=== PATIENT | male | born 1960 | race Caucasian/White ===

== ENCOUNTER 2017-04-11 22:11 | Inpatient (IN) | payer OTHER ==
[2017-04-11] MEDS ORDERED: HYDROmorphone 1 MG/ML 1 ML SYRINGE IVP STA (22:26)
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
--- NOTE | 2017-04-11 22:38 | XR ---
EXAMINATION TYPE: XR chest 1V DATE OF EXAM: 04/11/2017 COMPARISON: Today HISTORY: Pain TECHNIQUE: Single frontal view of the chest is obtained. FINDINGS: Right chest tube appears in good position. I see no pneumothorax. There is mild subcutaneo us air around the chest tube. There is some mild infiltrate and atelectasis at the lung bases bilater ally. There is no heart failure. Mediastinum appears normal. There is at least one lateral right rib fracture. IMPRESSION: Right chest tube is in good position. No pneumothorax. There is some mild increasing inf iltrate and atelectasis at the lung bases compared to the [facility] exam at 4:00 PM today.
[2017-04-11 22:39] LABS: Glucose,Whole Blood 111 mg/dL (75-99)
--- NOTE | 2017-04-11 22:40 | XR ---
EXAMINATION TYPE: XR pelvis AP view DATE OF EXAM: 04/11/2017 COMPARISON: NONE HISTORY: Pain TECHNIQUE: Single view FINDINGS: The pelvic ring appears intact. Proximal femurs are intact. Sacroiliac joints appear normal . IMPRESSION: Negative pelvis x-ray exam. No fracture seen.
[2017-04-11 22:41] LABS: Basophils % (A) 0 %; CH 31.7; CHCM 32.8; Eosinophils # (A) 0.1 k/uL (0-0.7); Eosinophils % (A) 1 %; HCT 48.3 % (39.0-53.0); HDW 2.22; HGB 16.1 gm/dL (13.0-17.5); Luc # (Auto) 0.15; Luc % (Auto) 1; Lymphocytes # (A) 1.3 k/uL (1.0-4.8); Lymphocytes % (A) 9 %; MCH 32.3 pg (25.0-35.0); MCHC 33.3 g/dL (31.0-37.0); MCV 97.1 fL (80.0-100.0); Mean Platelet Volume 8.1; Monocytes # (A) 0.8 k/uL (0-1.0); Monocytes % (A) 6 %; Neutrophils # (A) 12.4 k/uL (1.3-7.7); Neutrophils % (A) 84 %; RBC 4.97 m/uL (4.30-5.90); RDW 14.1 % (11.5-15.5); WBC 14.8 k/uL (3.8-10.6); WBC (Perox) 14.45
[2017-04-11 22:48] LABS: Partial Thromboplastin Time 24.7 sec (22.0-30.0); Prothrombin Time 10.5 sec (9.0-12.0)
[2017-04-11 22:52] LABS: ALT 40 U/L (21-72); AST 45 U/L (17-59); Alcohol <10 mg/dL; Alkaline Phosphatase 52 U/L (38-126); Amylase 54 U/L (30-110); Anion Gap 6 mmol/L; Blood Urea Nitrogen 17 mg/dL (9-20); Calcium 8.6 mg/dL (8.4-10.2); Carbon Dioxide 25 mmol/L (22-30); Chloride 106 mmol/L (98-107); Glucose 107 mg/dL (74-99); Non-African American GFR(MDRD) >60 (>60 ml/min/1.73 sqM); Sodium 137 mmol/L (137-145); Total Bilirubin 0.7 mg/dL (0.2-1.3); Total Protein 6.8 g/dL (6.3-8.2)
[2017-04-11 23:01] LABS: Creatine Kinase 646 U/L (55-170)
[2017-04-11] MEDS ORDERED: NALOXONE 0.4 MG/ML 1 ML VIAL IV PRN (23:08)
[2017-04-11 23:14] LABS: Troponin I <0.012 ng/mL (0.000-0.034)
[2017-04-11 23:17] LABS: Creatine Kinase MB 10.4 ng/mL (0.0-2.4)
[2017-04-12] MEDS ORDERED: HYDROmorphone 1 MG/ML 1 ML SYRINGE IVP STA
[2017-04-12] MEDS: SODIUM CHLORIDE 0.9% 1,000 ML IV SCH ×2 (01:09→19:57)
[2017-04-12] MEDS: HYDROcodone/APAP 5-325MG 1 EACH TAB PO PRN ×5 (01:11→19:03)
[2017-04-12] MEDS: HYDROmorphone 1 MG/ML 1 ML SYRINGE IVP PRN ×6 (02:29→16:58)
[2017-04-12 06:40] LABS: Basophils % (A) 0 %; CH 32.6; CHCM 32.8; Eosinophils # (A) 0.1 k/uL (0-0.7); Eosinophils % (A) 1 %; HCT 47.2 % (39.0-53.0); HDW 2.32; HGB 15.4 gm/dL (13.0-17.5); Luc # (Auto) 0.14; Luc % (Auto) 1; Lymphocytes # (A) 1.2 k/uL (1.0-4.8); Lymphocytes % (A) 10 %; MCH 32.6 pg (25.0-35.0); MCHC 32.7 g/dL (31.0-37.0); Mean Platelet Volume 7.3; Monocytes # (A) 0.8 k/uL (0-1.0); Monocytes % (A) 6 %; Neutrophils % (A) 82 %; RBC 4.72 m/uL (4.30-5.90); RDW 12.7 % (11.5-15.5); WBC 12.1 k/uL (3.8-10.6); WBC (Perox) 11.59
[2017-04-12 06:58] LABS: ALT 40 U/L (21-72); AST 49 U/L (17-59); Alkaline Phosphatase 54 U/L (38-126); Anion Gap 7 mmol/L; Blood Urea Nitrogen 15 mg/dL (9-20); Calcium 8.5 mg/dL (8.4-10.2); Carbon Dioxide 23 mmol/L (22-30); Chloride 105 mmol/L (98-107); Glucose 117 mg/dL (74-99); Non-African American GFR(MDRD) >60 (>60 ml/min/1.73 sqM); Potassium 4.6 mmol/L (3.5-5.1); Sodium 135 mmol/L (137-145); Total Bilirubin 1.1 mg/dL (0.2-1.3); Total Protein 6.8 g/dL (6.3-8.2)
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
[2017-04-12] MEDS: ACETAMINOPHEN TAB 500 MG TAB PO SCH ×2 (10:00→15:23)
[2017-04-12] MEDS: PANTOPRAZOLE 40 MG TABLET PO SCH (10:22)
[2017-04-12] MEDS: KETOROLAC 30 MG/ML 1 ML VIAL IVP SCH ×2 (11:06→16:33)
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
[2017-04-12] MEDS: HYDROmorphone 2 MG/ML 1 ML SYRINGE IVP PRN ×2 (19:53→22:51)
[2017-04-13] MEDS: HYDROcodone/APAP 5-325MG 1 EACH TAB PO PRN ×2 (00:13→04:47)
[2017-04-13] MEDS: KETOROLAC 30 MG/ML 1 ML VIAL IVP SCH ×5 (00:13→23:43)
[2017-04-13] MEDS: ACETAMINOPHEN TAB 500 MG TAB PO SCH ×4 (01:11→23:47)
[2017-04-13] MEDS: HYDROmorphone 2 MG/ML 1 ML SYRINGE IVP PRN ×5 (01:48→14:21)
[2017-04-13] MEDS: PANTOPRAZOLE 40 MG TABLET PO SCH (06:09)
--- NOTE | 2017-04-13 07:10 | XR ---
EXAMINATION TYPE: XR chest 1V DATE OF EXAM: 04/13/2017 COMPARISON: 04/12/2017 HISTORY: Chest 2 TECHNIQUE: Single frontal view of the chest is obtained. FINDINGS: Right-sided chest tube again noted. Subsegmental consolidation the right lung base. No siz able pneumothorax. Arthropathy of the right shoulder. Right-sided rib fractures not as well seen on t doris's exam. IMPRESSION: 1. No pneumothorax. 2. Stable right basilar atelectasis
[2017-04-13] MEDS: CITALOPRAM HYDROBROMIDE 20 MG TAB PO SCH (08:17)
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
[2017-04-13] MEDS: HYDROcodone/APAP 7.5-325MG 1 EACH TAB PO PRN (13:57)
[2017-04-13] MEDS ORDERED: NALOXONE 0.4 MG/ML 1 ML VIAL IV PRN (17:18)
[2017-04-13] MEDS ORDERED: LACTATED RINGERS 1,000 ML IV ONE (17:32)
[2017-04-13] MEDS: BUPIVACAINE (PF) 0.5% 31.3 ML, HYDROMORPHONE (PF) 5 MG in SODIUM CHLORIDE 0.9% 218 ML EPIDURAL PRN ×2 (17:50→17:59)
[2017-04-13] MEDS ORDERED: MAGNESIUM HYDROXIDE 2,400 MG/10 ML CUP PO PRN (19:47)
[2017-04-14] MEDS: KETOROLAC 30 MG/ML 1 ML VIAL IVP SCH (06:25)
[2017-04-14] MEDS: ACETAMINOPHEN TAB 500 MG TAB PO SCH ×2 (08:15→15:25)
[2017-04-14] MEDS: PANTOPRAZOLE 40 MG TABLET PO SCH (08:15)
[2017-04-14] MEDS: CITALOPRAM HYDROBROMIDE 20 MG TAB PO SCH (08:15)
[2017-04-14] MEDS: NICOTINE 21MG/24HR PATCH TRANSDERM SCH (11:58)
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
--- NOTE | 2017-04-14 12:52 | XR ---
EXAMINATION TYPE: XR chest 1V portable DATE OF EXAM: 04/14/2017 HISTORY: chest tube follow up, check progress. REFERENCE: Previous study dated 04/13/2017. FINDINGS: The patient's right pleural drain has pulled out of the chest and is now in the soft tissue s of the thorax. There is subcutaneous emphysema extending into the neck. There is been a reaccumulation of a small amount of fluid on the right. This is atelectatic changes a t the right lung base. I do not see a definite pneumothorax. The heart is mildly prominent. IMPRESSION: 1. MALPOSITION OF THE PATIENT'S CHEST TUBE. 2. REACCUMULATION OF A SMALL AMOUNT OF RIGHT-SIDED FLUID. 3. ATELECTATIC CHANGE, RIGHT LUNG BASE. 4. MILD CARDIOMEGALY.
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
[2017-04-14] MEDS ORDERED: ALPRAZolam 0.5 MG TAB PO PRN (13:30)
[2017-04-14] MEDS ORDERED: LORazepam 2 MG/ML INJ IV PRN ×3 (13:30)
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
[2017-04-14] MEDS: THIAMINE 100 MG TAB PO SCH (18:04)
--- NOTE | 2017-04-14 18:57 | XR ---
"EXAMINATION TYPE: XR chest 1V portable DATE OF EXAM: 04/14/2017 COMPARISON: 04/14/2017 HISTORY: Chest tube removal. TECHNIQUE: Single frontal view of the chest is obtained. FINDINGS: The previously seen thoracostomy tube with fenestrated portion outside of the parietal ple ura on the exam of 04/14/2017 has been removed in the interim. Extensive lateral chest wall subcutane ous emphysema is seen on the right extending into the supraclavicular soft tissues. There is minimal reaccumulation of the right-sided pneumothorax with apical pleural separation of up to 9 mm, a small amount of air seen within the right minor fissure, and a small amount of air trapped medially along the mediastinal border of the midthoracic cavity. This corresponds to pneumothorax of less than 10%. Results in opacification of the right lung relating to subsegmental compressive atele ctasis is seen with trace right meniscal level at the costophrenic angle likely relating to small hem opneumothorax. Left lung remains clear. IMPRESSION: 1. Interval removal of a malpositioned right-sided thoracostomy tube with mild reaccumulation of the right-sided pneumothorax quantified at less than 10% of the right lung volume and meniscal fluid leve l likely relating to a hemopneumothorax. 2. Right-sided multifocal subsegmental atelectasis is seen as a result of the above findings. 3. Extensive subcutaneous emphysema along the right lateral chest wall tracks into the right supracla vicular region and this is similar to the prior exam. A [place] message has been communicated to Jess Lombardo DO via the [employer] | Critical Result sy stem on 04/14/2017 6:55 PM, Message ID [id number]."
[2017-04-14] MEDS: HYDROMORPHONE EPIDURAL PRN (20:29)
[2017-04-14] MEDS: SODIUM CHLORIDE 0.9% EPIDURAL PRN (20:29)
[2017-04-14] MEDS: BUPIVACAINE 0.5% EPIDURAL PRN (20:29)
[2017-04-15] MEDS: ACETAMINOPHEN TAB 500 MG TAB PO SCH ×3 (00:24→17:53)
--- NOTE | 2017-04-15 07:04 | XR ---
EXAMINATION TYPE: XR chest 1V DATE OF EXAM: 04/15/2017 HISTORY: pneumothorax. REFERENCE: Previous study dated 04/14/2017. FINDINGS: The patient's right-sided pneumothorax has partially resolved. There is some minimal residu al pneumothorax medially adjacent to the right heart border. There is subcutaneous emphysema. There i s a right pleural effusion. There is some right basilar airspace disease. IMPRESSION: PARTIAL RESOLUTION OF THE PATIENT'S RIGHT-SIDED PNEUMOTHORAX.
[2017-04-15] MEDS: NICOTINE 21MG/24HR PATCH TRANSDERM SCH (07:25)
[2017-04-15] MEDS: PANTOPRAZOLE 40 MG TABLET PO SCH (07:27)
[2017-04-15] MEDS: CITALOPRAM HYDROBROMIDE 20 MG TAB PO SCH (07:27)
[2017-04-15] MEDS ORDERED: NICOTINE 21MG/24HR PATCH TRANSDERM SCH (09:00)
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
--- NOTE | 2017-04-15 10:47 | P.PN ---
Progress Note - Text Progress Note Date: 04/15/17 I was able to look at the patient's chest x-ray from today. There is some subcutaneous emphysema. There may be also be a small pneumothorax. Other than for pain though, the patient is asymptomatic.
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
[2017-04-15] MEDS ORDERED: MULTIVITAMINS, THERA 1 EACH TAB PO SCH (12:00)
[2017-04-15] MEDS: THIAMINE 100 MG TAB PO SCH ×2 (12:59→17:52)
[2017-04-15] MEDS: HYDROMORPHONE EPIDURAL PRN (19:49)
[2017-04-15] MEDS: SODIUM CHLORIDE 0.9% EPIDURAL PRN (19:49)
[2017-04-15] MEDS: BUPIVACAINE 0.5% EPIDURAL PRN (19:49)
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
[2017-04-15 22:55] VITALS: RESP 16
[2017-04-16] MEDS: ACETAMINOPHEN TAB 500 MG TAB PO SCH ×2 (00:20→08:19)
[2017-04-16] MEDS: PANTOPRAZOLE 40 MG TABLET PO SCH (08:19)
[2017-04-16] MEDS: CITALOPRAM HYDROBROMIDE 20 MG TAB PO SCH (08:19)
[2017-04-16] MEDS: NICOTINE 21MG/24HR PATCH TRANSDERM SCH (08:20)
[2017-04-16] MEDS: HYDROcodone/APAP 7.5-325MG 1 EACH TAB PO PRN ×2 (08:20→13:23)
[2017-04-16 08:26] VITALS: BP 140/72; PULSE 65; TEMP 96.2
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
[2017-04-16 11:27] VITALS: BMI 19.3
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
== END 2017-04-16 13:33 | disposition home or self-care (01) | DRG 199 ==
LOC: EC 22:11 → 6SEL 23:08 → 4MS4W 04-13 16:24
PROVIDERS: ADMIT Surgery; ATTEND Surgery
DX: S27.2XXA Traumatic hemopneumothorax, initial encounter (principal); J96.01 Acute respiratory failure with hypoxia; S22.31XA Fracture of one rib, right side, initial encounter for closed fracture; F32.9 Major depressive disorder, single episode, unspecified; J44.9 Chronic obstructive pulmonary disease, unspecified; F17.200 Nicotine dependence, unspecified, uncomplicated; F41.9 Anxiety disorder, unspecified; T79.7XXA Traumatic subcutaneous emphysema, initial encounter; L29.9 Pruritus, unspecified; M25.512 Pain in left shoulder; Z71.6 Tobacco abuse counseling; Z98.1 Arthrodesis status; Z79.899 Other long term (current) drug therapy; V43.62XA Car passenger injured in collision with other type car in traffic accident, initial encounter; Y92.410 Unspecified street and highway as the place of occurrence of the external cause
CPT/HCPCS: 36415; 62325; 71010; 72170; 80053; 80320; 82150; 82550; 82553; 83690; 84484; 85025; 85610; 85730; 86850; 86900; 86901; 96374; 96376; 99285

== ENCOUNTER 2019-07-09 12:19 | Emergency (ER) | payer OTHER ==
[2019-07-09 12:27] VITALS: BP 166/98; PULSE 64; RESP 18; TEMP 97.5
[2019-07-09] MEDS ORDERED: SODIUM CHLORIDE 0.9% 1,000 ML IV STA (12:27)
[2019-07-09] MEDS ORDERED: HYDROmorphone 1 MG/ML 1 ML SYRINGE IVP STA ×2 (12:27→13:29)
--- NOTE | 2019-07-09 12:34 | ED ---
General Adult HPI - General Source: patient, EMS, RN notes reviewed Mode of arrival: EMS Limitations: no limitations <Arun Diaz - Last Filed: 07/09/19 14:40> <Lonny Ambrose - Last Filed: 07/09/19 15:18> - General Chief complaint: Trauma Stated complaint: Fall Time Seen by Provider: 07/09/19 12:20 - History of Present Illness Initial comments: Patient is a pleasant 58-year-old male presenting to the emergency department with complaints of fall. Incident occurred at work just prior to arrival. Patient was in an attic translation when the floor she fell. Patient fell approximately 12 feet. Patient believes he broke his fall with his right arm. Patient complains of discomfort of his right wrist and right upper arm. Patient did strike his head on a truck. Patient does not believe he lost consciousness. EMS reports that patient was somewhat repetitive however patient states that he could not hear them well and that's reason he was repetitive. Patient is not repetitive in the emergency department. Patient does complain of discomfort in his head as well as laceration. Patient also sustained laceration to left index finger. No chest pain or dyspnea. No neck or back pain. No abdominal pain. (Arun Diaz) - Related Data Home Medications Medication Instructions Recorded Confirmed Citalopram Hydrobromide [CeleXA] 20 mg PO DAILY 04/11/17 07/09/19 Ibuprofen [Motrin Ib] 200 mg PO Q8H PRN 07/09/19 07/09/19 Allergies Allergy/AdvReac Type Severity Reaction Status Date / Time No Known Allergies Allergy Verified 07/09/19 14:06 Review of Systems ROS Other: All systems not noted in ROS Statement are negative. Constitutional: Denies: fever Eyes: Denies: eye pain ENT: Denies: ear pain Respiratory: Denies: cough, dyspnea Cardiovascular: Denies: chest pain Endocrine: Denies: fatigue Gastrointestinal: Denies: abdominal pain Genitourinary: Denies: dysuria Musculoskeletal: Denies: back pain Skin: Denies: rash Neurological: Reports: as per HPI, headache. Denies: weakness <Arun Diaz - Last Filed: 07/09/19 14:40> ROS Other: All systems not noted in ROS Statement are negative. <Lonny Ambrose - Last Filed: 07/09/19 15:18> ROS Statement: Those systems with pertinent positive or pertinent negative responses have been documented in the HPI. Past Medical History Past Medical History: COPD Additional Past Medical History / Comment(s): Drinks 3-5 beers a day History of Any Multi-Drug Resistant Organisms: None Reported Past Surgical History: Back Surgery Additional Past Surgical History / Comment(s): Spinal fusion of L3-L4 and L5, history of ruptured disks Past Anesthesia/Blood Transfusion Reactions: No Reported Reaction Past Psychological History: Anxiety, Depression Smoking Status: Current every day smoker Past Alcohol Use History: Daily Past Drug Use History: None Reported <Arun Diaz - Last Filed: 07/09/19 14:40> General Exam Limitations: no limitations General appearance: alert, in no apparent distress Head exam: Present: other (Stellate laceration right frontal parietal scalp) Eye exam: Present: normal appearance, PERRL, EOMI. Absent: nystagmus ENT exam: Present: normal oropharynx Neck exam: Present: normal inspection. Absent: tenderness Respiratory exam: Present: normal lung sounds bilaterally. Absent: chest wall tenderness Cardiovascular Exam: Present: regular rate, normal rhythm Expanded Peripheral pulses: 2+: Radial (R), Radial (L), Dorsalis Pedis (R), Dorsalis Pedis (L) GI/Abdominal exam: Present: soft. Absent: distended, tenderness, guarding, rebound, rigid Extremities exam: Present: normal inspection, full ROM, tenderness (Moderate tenderness right wrist. Mild tenderness right proximal humerus) Left Hand Wrist exam: Present: other (Left distal palmar finger with laceration. No visualized tendon disruption. Flexion and extension of the finger are intact against resistance. Good sensation.) Back exam: Present: tenderness (Thoracic spine upper to mid) Neurological exam: Present: alert, oriented X3, CN II-XII intact. Absent: motor sensory deficit Expanded Sensory exam: Upper Extremity Light Touch: Normal, Lower Extremity Light Touch: Normal Motor strength exam: RUE: 5, LUE: 5, RLE: 5, LLE: 5 Eye Response: (4) open spontaneously Motor Response: (6) obeys commands Verbal Response: (5) oriented Psychiatric exam: Present: normal affect, normal mood Skin exam: Present: other (Scalp laceration. Laceration left distal index finger.) <Arun Diaz - Volodymyr Filed: 07/09/19 14:40> Course Vital Signs 07/09/19 12:21 Temperature 97.5 F L Pulse Rate 64 Respiratory 18 Rate Blood Pressure 166/98 O2 Sat by Pulse 98 Oximetry EKG Findings - EKG Comments: EKG Findings:: Normal sinus rhythm 67. NC 154. QRS 90. QT 404. QTC 426. Normal axis. Normal QRS. No acute ST change. <Arun Diaz - Last Filed: 07/09/19 14:40> Procedures - Laceration Laceration #1 Site: scalp Size (cm): 6 Description: stellate Depth: simple, single layer Anesthetic Used: lidocaine 1% Anesthesia Technique: local infiltration Amount (mls): 4 Pre-repair: wound explored, irrigated extensively, deep structures intact Type of Sutures: nylon, other (staple) Size of Sutures: 5-0, other (6 geovanna ) Number of Sutures: 3 Technique: simple, interrupted Patient Tolerated Procedure: well, no complications Laceration #2 Consent Obtained: verbal consent Indication: laceration Site: hand (1st digit at dip joint ) Size (cm): 2 Description: linear Depth: simple, single layer Anesthetic Used: lidocaine 1% Anesthesia Technique: local infiltration Amount (mls): 2 Pre-repair: wound explored, irrigated extensively, deep structures intact Type of Sutures: nylon Size of Sutures: 5-0 Number of Sutures: 3 Technique: simple, interrupted Patient Tolerated Procedure: well, no complications - Orthopedic Splinting/Casting Injury #1 Side: right Upper Extremity Injury Location: short arm, hand Upper Extremity Immobilizer: thumb spica, synthetic pre-padded splint <Lonny Ambrose - Last Filed: 07/09/19 15:18> - Laceration Laceration #1 Additional Comments: 3 sutues, 6 geovanna (Lonny Ambrose) Laceration #2 Additional Comments: full active range of motion of all digits before and after suture placement. Strength intact. Sensation intact. 1st digit left hand flexion extension intact at mcp, pip, dip joint. Cap refill less than 2 seconds. (Lonny Ambrose) - Orthopedic Splinting/Casting Injury #1 Additional Comments: Neurovascularly intact before and after splint placement. Tenderness noted at snuffbox region. (Lonny Ambrose) Medical Decision Making - Lab Data Result diagrams: 07/09/19 12:23 07/09/19 12:23 - Radiology Data Radiology results: report reviewed (Computed tomography scan of the brain and cervical spine shows no acute fracture dislocation. Degenerative disc disease. No acute intercranial hemorrhage. Soft tissue laceration. Computed tomography scan of the thoracic spine shows no fracture or subluxation. Calcified granuloma right lower lobe.), image reviewed (Chest x-ray shows no acute pr ocess, pulmonary nodule. One view pelvis x-ray shows no acute fracture or dislocation. X-ray of the right wrist shows no fracture or dislocation. X-ray of the right humerus shows no fracture or dislocation.) <Arun Diaz - Last Filed: 07/09/19 14:40> - Lab Data Result diagrams: 07/09/19 12:07/09/19 12:23 <Lonny Ambrose - Last Filed: 07/09/19 15:18> - Medical Decision Making Patient reevaluated and updated. Patient does have known area of right lung and he states this has been recently evaluated. Patient still advised for repeat evaluation. Patient also updated on need for follow-up, specifically with neck. Patient does have some occasional right-sided chronic neck problems. Patient is requesting discharge home. Patient will be discharged following sutureing. (Arun Diaz) - Lab Data Lab Results 07/09/19 07/09/19 07/09/19 Range/Units 12:23 12:23 12:23 WBC 11.8 H (3.8-10.6) k/uL RBC 5.17 (4.30-5.90) m/uL Hgb 16.5 (13.0-17.5) gm/dL Hct 49.2 (39.0-53.0) % MCV 95.3 (80.0-100.0) fL MCH 31.9 (25.0-35.0) pg MCHC 33.5 (31.0-37.0) g/dL RDW 12.5 (11.5-15.5) % Plt Count 282 (150-450) k/uL Neutrophils % 72 % Lymphocytes % 18 % Monocytes % 6 % Eosinophils % 1 % Basophils % 1 % Neutrophils # 8.5 H (1.3-7.7) k/uL Lymphocytes # 2.1 (1.0-4.8) k/uL Monocytes # 0.7 (0-1.0) k/uL Eosinophils # 0.2 (0-0.7) k/uL Basophils # 0.1 (0-0.2) k/uL PT 10.0 (9.0-12.0) sec INR 1.0 (<1.2) APTT 23.5 (22.0-30.0) sec Sodium 135 L (137-145) mmol/L Potassium 4.0 (3.5-5.1) mmol/L Chloride 101 (98-107) mmol/L Carbon Dioxide 26 (22-30) mmol/L Anion Gap 8 mmol/L BUN 12 (9-20) mg/dL Creatinine 0.97 (0.66-1.25) mg/dL Est GFR (CKD-EPI)AfAm >90 (>60 ml/min/1.73 sqM) Est GFR (CKD-EPI)NonAf 88 (>60 ml/min/1.73 sqM) Glucose 102 H (74-99) mg/dL Calcium 8.9 (8.4-10.2) mg/dL Total Bilirubin 0.7 (0.2-1.3) mg/dL AST 36 (17-59) U/L ALT 32 (4-49) U/L Alkaline Phosphatase 63 (38-126) U/L Total Protein 6.8 (6.3-8.2) g/dL Albumin 4.0 (3.5-5.0) g/dL Serum Alcohol <10 mg/dL Blood Type Blood Type Recheck Bld Type Recheck Status Antibody Screen Spec Expiration Date 07/09/19 Range/Units 12:23 WBC (3.8-10.6) k/uL RBC (4.30-5.90) m/uL Hgb (13.0-17.5) gm/dL Hct (39.0-53.0) % MCV (80.0-100.0) fL MCH (25.0-35.0) pg MCHC (31.0-37.0) g/dL RDW (11.5-15.5) % Plt Count (150-450) k/uL Neutrophils % % Lymphocytes % % Monocytes % % Eosinophils % % Basophils % % Neutrophils # (1.3-7.7) k/uL Lymphocytes # (1.0-4.8) k/uL Monocytes # (0-1.0) k/uL Eosinophils # (0-0.7) k/uL Basophils # (0-0.2) k/uL PT (9.0-12.0) sec INR (<1.2) APTT (22.0-30.0) sec Sodium (137-145) mmol/L Potassium (3.5-5.1) mmol/L Chloride (98-107) mmol/L Carbon Dioxide (22-30) mmol/L Anion Gap mmol/L BUN (9-20) mg/dL Creatinine (0.66-1.25) mg/dL Est GFR (CKD-EPI)AfAm (>60 ml/min/1.73 sqM) Est GFR (CKD-EPI)NonAf (>60 ml/min/1.73 sqM) Glucose (74-99) mg/dL Calcium (8.4-10.2) mg/dL Total Bilirubin (0.2-1.3) mg/dL AST (17-59) U/L ALT (4-49) U/L Alkaline Phosphatase (38-126) U/L Total Protein (6.3-8.2) g/dL Albumin (3.5-5.0) g/dL Serum Alcohol mg/dL Blood Type O Positive Blood Type Recheck O Pos Bld Type Recheck Status No Antibody Screen NEGATIVE Spec Expiration Date 07/12/20192322 Disposition Is patient prescribed a controlled substance at d/c from ED?: No Time of Disposition: 14:43 <Arun Diaz - Last Filed: 07/09/19 14:40> <Lonny Ambrose - Last Filed: 07/09/19 15:18> Clinical Impression: Fall, Scalp laceration, Finger laceration, Contusion, Head injury Disposition: HOME SELF-CARE Condition: Stable Instructions (If sedation given, give patient instructions): Head Injury (ED), Contusion in Adults (ED) Additional Instructions: Please follow-up with primary care physician and orthopedics in the next couple of days for recheck. Return for change in mental status, weakness, persistent vomiting, coordination problems, worsening symptoms or any other concerns. Please have follow-up physician review CT scans including computed tomography scan of the cervical spine and chest x-ray as these will need further evaluation. Please return for suture removal: Hand: 7-10 days Face: 5 days Chest/abdomen: 12-14 days Extremities: 7-10 days Scalp: 7 days Eyebrow: 5-7 days Foot/sole: 12-14 days Please monitor for signs and symptoms of infection including: redness, warmth, drainage, discharge. Please return to ED if these signs or symptoms occur, new signs or symptoms develop or if condition worsens in anyway. Referrals: Javi Myers MD [STAFF PHYSICIAN] - 1-2 days Marisabel Cortez DO [Doctor of Osteopathic Medicine] - 1-2 days Suresh Lanier MD [STAFF PHYSICIAN] - 1-2 days
[2019-07-09 12:53] LABS: Basophils # (A) 0.1 k/uL (0-0.2); Basophils % (A) 1 %; Eosinophils # (A) 0.2 k/uL (0-0.7); Eosinophils % (A) 1 %; HCT 49.2 % (39.0-53.0); HGB 16.5 gm/dL (13.0-17.5); Lymphocytes # (A) 2.1 k/uL (1.0-4.8); Lymphocytes % (A) 18 %; MCH 31.9 pg (25.0-35.0); MCHC 33.5 g/dL (31.0-37.0); MCV 95.3 fL (80.0-100.0); Mean Platelet Volume 7.8; Monocytes # (A) 0.7 k/uL (0-1.0); Monocytes % (A) 6 %; Neutrophils # (A) 8.5 k/uL (1.3-7.7); Neutrophils % (A) 72 %; Platelet Count 282 k/uL (150-450); RBC 5.17 m/uL (4.30-5.90); RDW 12.5 % (11.5-15.5); WBC 11.8 k/uL (3.8-10.6)
--- NOTE | 2019-07-09 12:59 | XR ---
EXAMINATION TYPE: XR chest 1V portable DATE OF EXAM: 07/09/2019 COMPARISON: 04/15/2017 HISTORY: Trauma and chest pain TECHNIQUE: Single frontal view of the chest is obtained. FINDINGS: Right basilar 6 mm pulmonary nodule is not seen on the prior, possibly due to obscuration by the posttraumatic change of the right chest the prior examination of 2016. Alternatively this coul d be new. No new focal consolidation, pleural effusion or pneumothorax. Cardiomediastinal silhouette is within normal limits. Osseous structures appear intact. IMPRESSION: 1. No acute cardiopulmonary process. 2. Right basilar 6 mm pulmonary nodule could have been obscured on prior imaging or may be new. Nonem ergent follow-up chest CT is recommended for further evaluation.
--- NOTE | 2019-07-09 12:59 | XR ---
AP pelvis HISTORY: Trauma and pain Single frontal view of the pelvis, comparison to prior exam 04/11/2017 Bone mineralization, joint spaces and alignment are maintained. Vascular calcifications are present w ithin the pelvis. Postop changes are noted at the lower lumbar spine. Overlying artifact at the level of the greater trochanter on the left is suspected. IMPRESSION: No acute fracture or dislocation.
--- NOTE | 2019-07-09 13:00 | XR ---
Right wrist HISTORY: Trauma and pain 3 views of the right wrist Bone mineralization, joint spaces and alignment are maintained. Lateral exam is not optimally positio que. No significant soft tissue swelling. IMPRESSION: No fracture or dislocation is evident.
--- NOTE | 2019-07-09 13:00 | XR ---
EXAMINATION TYPE: XR humerus RT DATE OF EXAM: 07/09/2019 CLINICAL HISTORY: Fall with right humeral pain TECHNIQUE: Two views of the right humerus are obtained. COMPARISON: None. FINDINGS: There is no acute fracture or dislocation seen in the right humerus. The right shoulder a nd elbow joints appear aligned. Mild acromioclavicular arthropathy. The overlying soft tissue appears within normal limits. 6 mm pulmonary nodule in the right lung base as discussed on the chest x-ray o f the same date. IMPRESSION: No acute fracture or dislocation is evident in the right humerus.
[2019-07-09 13:04] LABS: ALT 32 U/L (4-49); AST 36 U/L (17-59); African American GFR (CKD) >90 (>60 ml/min/1.73 sqM); Alcohol <10 mg/dL; Alkaline Phosphatase 63 U/L (38-126); Anion Gap 8 mmol/L; Blood Urea Nitrogen 12 mg/dL (9-20); Calcium 8.9 mg/dL (8.4-10.2); Carbon Dioxide 26 mmol/L (22-30); Chloride 101 mmol/L (98-107); Glucose 102 mg/dL (74-99); Non-African American GFR(CKD) 88 (>60 ml/min/1.73 sqM); Sodium 135 mmol/L (137-145); Total Bilirubin 0.7 mg/dL (0.2-1.3); Total Protein 6.8 g/dL (6.3-8.2)
[2019-07-09 13:06] LABS: Partial Thromboplastin Time 23.5 sec (22.0-30.0)
--- NOTE | 2019-07-09 13:36 | CT ---
EXAMINATION TYPE: CT thoracic spine wo con DATE OF EXAM: 07/09/2019 COMPARISON: None HISTORY: fall, thoracic trauma, pain CT DLP: 786.5 mGycm Automated exposure control for dose reduction was used. Helical imaging through the thoracic spine. FINDINGS: Thoracic vertebral bodies are intact. There is normal height and alignment. Old right-sided anterior rib fracture present at the second rib on the right appears healed. Multilevel thoracic spondylosis. There is no evident spinal stenosis. Some minimal dependent atelectatic changes are present. No evide nt pleural or pericardial effusion. Emphysematous changes are present within the lungs. Low dense foc i are associated with the left and right kidney likely representing cortical cysts. There is evidence of granulomatous disease, calcified granuloma right lower lobe, calcified right hilar and subcarinal nodes. For super aortic branch vessels present in the thoracic aorta. IMPRESSION: NO ACUTE FRACTURE OR SUBLUXATION. ADDITIONAL FINDINGS ABOVE.
--- NOTE | 2019-07-09 13:38 | CT ---
EXAMINATION TYPE: CT brain ja johnson con DATE OF EXAM: 07/09/2019 COMPARISON: HISTORY: fall, head/neck trauma CT DLP: 1198.8 mGycm Automated exposure control for dose reduction was used. TECHNIQUE: CT scan of the head and cervical spine are performed without contrast. FINDINGS: There is a soft tissue laceration adjacent to the right frontal bone with no evidence of calvarial defect. Adjacent subcutaneous hematoma noted. No midline shift or mass effect. Ventricular system compatible with the patient's age. No acute hemor rhage. Assessment spinal canal is limited by resolution and artifact. Grossly the odontoid is intact. There is loss the normal cervical lordosis. Multilevel degenerative disc disease, facet arthropathy and hyp ertrophic spurring with most marked findings at C5-6 and C6-C7. Multilevel foraminal encroachment not ed. Suspect canal stenosis C5-6 and possibly C6-C7. Emphysematous changes involving the lung apices. IMPRESSION: 1. There is no acute fracture or dislocation evident in the cervical spine. Multilevel degenerative d isc disease and loss of the normal cervical lordosis with multilevel foraminal encroachment. Suspect multilevel canal stenosis recommend follow-up MRI. 2. No acute intracranial hemorrhage, mass effect, or midline shift is seen. Soft tissue laceration an d hematoma overlying the right frontal bone. Calvarium intact.
[2019-07-09] MEDS ORDERED: LIDOCAINE 1% INJ 10MG/ML (20 ML MDV) SQ STA (13:59)
[2019-07-09] MEDS ORDERED: HYDROmorphone 0.5 MG/0.5 ML SYRINGE IVP STA (14:16)
[2019-07-09] MEDS ORDERED: ACET/COD 300 MG/30 MG STARTER PACK 6 TAB BTL PO STA (14:44)
== END 2019-07-09 15:34 | disposition home or self-care (01) ==
LOC: EC 12:19
DX: S61.211A Laceration without foreign body of left index finger without damage to nail, initial encounter (principal); S01.01XA Laceration without foreign body of scalp, initial encounter; M79.601 Pain in right arm; F41.9 Anxiety disorder, unspecified; F32.9 Major depressive disorder, single episode, unspecified; F17.200 Nicotine dependence, unspecified, uncomplicated; Z79.899 Other long term (current) drug therapy; Z98.1 Arthrodesis status; W17.89XA Other fall from one level to another, initial encounter; Y92.009 Unspecified place in unspecified non-institutional (private) residence as the place of occurrence of the external cause
CPT/HCPCS: 99285; 12002; 96374; 96376 ×2; 96361 ×2; 36415; 86900; 86901; 80053; 85025; 85610; 85730; 86850; 72170; 73060; 73110; 71045; 72128; 72125; 70450; G0480; J2001; J1170 ×2; 80320